=== PATIENT | male | born 1930 | race Caucasian/White ===

== ENCOUNTER 2016-12-31 16:17 | Emergency (ER) | payer MEDICARE, BC ==
[~2016-12-31] VITALS: Ht 172.7 cm; Wt 65.0 kg
[~2016-12-31 16:17] MED LIST: CHEMO MEDS; CIPR-9 PO; DORZ2SOL RIGHT EYE; LACTCHW3 CHEW; LUPR45IN IM; METR-1 PO; PRED5TAB PO; PROT40TA PO; TIMO0.5S5 RIGHT EYE
[2016-12-31 16:19] VITALS: BP 162/77; PULSE 91; RESP 15; TEMP 98.2; O2SAT 95
[2016-12-31] MEDS ORDERED: CALC1TAB87 PO (16:42)
--- NOTE | 2016-12-31 16:52 | PD ---
HPI Chief Complaint: Fall Time Seen by Provider: 16:52 Travel History International Travel<30 days: No Contact w/Intl Traveler<30days: No Traveled to known affect area: No History of Present Illness HPI 86-year-old male presents the emergency department with history of fall at his home. Patient states he was in his driveway speaking to another gentleman with a small dog in his hands when he stepped off the side of the driveway lost his balance and fell forward hitting his left anterior forehead. Patient denies any pain at this time. He denies loss of consciousness and remembers the whole incident. Denies any neck pain or other injury. Patient has an abrasion to the left lateral forehead/eyebrow small amount of capillary bleeding noted. He is unsure of his last tetanus shot. He does not take anticoagulants. He has no known drug allergies. PFSH Past Medical History Hx Anticoagulant Therapy: No Cancer: Yes (PROSTATE) Cardiovascular Problems: No Diabetes: No Diminished Hearing: No Hepatitis: No Hiatal Hernia: No Hypertension: No Medical other: Yes (PROSTATE) Psychiatric: No Respiratory: No Thyroid Disease: No Past Surgical History Abdominal Surgery: Yes (RIGHT AND LEFT INGUINAL HERNIA REPAIR) Genitourinary Surgery: Yes (RT Ureter) Oral Surgery: Yes (TONSILLECTOMY) Pacemaker: No Tonsillectomy: Yes Other Surgery: Yes (esophageal tumor) Social History Alcohol Use: Yes (OCC) Tobacco Use: No Substance Use: No Allergies-Medications (Allergen,Severity, Reaction): Coded Allergies: No Known Allergies (Unverified , 04/02/16) Reported Meds & Prescriptions Reported Meds & Active Scripts Active Reported Calcium 600 with Vitamin D (Calcium Carbonate-Cholecalciferol) 600-400 mg-Unit Tab 1 Tab PO DAILY [Chemo Meds] DIRECTED Timoptic Opth Drops (Timolol Opth Drops) 0.5 % Soln 1 Drop RIGHT EYE DAILY Dorzolamide Opth Drops (Dorzolamide HCl) 2% Soln 1 Drop RIGHT EYE TID Lupron Depot Inj Kit (Leuprolide (6 Month) Inj Kit) 45 Mg Kit Unknown Dose IM Q168D Review of Systems General / Constitutional: No: Fever Eyes: No: Visual changes HENT: No: Headaches Cardiovascular: No: Chest Pain or Discomfort Respiratory: No: Shortness of Breath Gastrointestinal: No: Abdominal Pain Genitourinary: No: Dysuria Musculoskeletal: No: Pain Skin: No Rash Neurologic: No: Weakness Psychiatric: No: Depression Endocrine: No: Polydipsia Hematologic/Lymphatic: No: Easy Bruising Physical Exam Narrative GENERAL: Patient appears in no acute distress. SKIN: Warm and dry. Normal color. Normal turgor. Superficial abrasion to the left lateral eyebrow with mild amount of capillary bleeding noted. No other signs of trauma noted. HEAD: Atraumatic. Normocephalic. Patient has some mild bruising over the left lateral forehead and eyebrow, which has mild tenderness. No bony tenderness or deformation noted. EYES: Pupils equal and round. No scleral icterus. No injection or drainage. Ocular motions are full bilaterally without tenderness. ENT: No nasal bleeding or discharge. Mucous membranes pink and moist. No dental injury. Pharynx is normal. No buccal membrane injury. NECK: Trachea midline. No bony tenderness or step-off. Supple and nontender. CARDIOVASCULAR: Regular rate and rhythm. No murmurs gallops or rubs. RESPIRATORY: No accessory muscle use. Clear to auscultation. Breath sounds equal bilaterally. MUSCULOSKELETAL: Extremities without clubbing, cyanosis, or edema. No obvious deformities. NEUROLOGICAL: Awake and alert. No obvious cranial nerve deficits. Motor grossly within normal limits. Five out of 5 muscle strength in the arms and legs. Normal speech. PSYCHIATRIC: Appropriate mood and affect; insight and judgment normal. Data Data Last Documented VS Vital Signs Date Time Temp Pulse Resp B/P Pulse Ox O2 Delivery O2 Flow Rate FiO2 12/31/16 16:35 Room Air 12/31/16 16:19 98.2 91 15 162/[address] Brain W/O Iv Contrast(Rout) (12/31/16 16:55) Tetanus/Diphtheria Tox Adult (Tetanus/Di (12/31/16 17:00) Wound Care (12/31/16 16:55) Ice/Cold Pack (12/31/16 16:55) [facility] Medical Decision Making Medical Screen Exam Complete: Yes Emergency Medical Condition: Yes Differential Diagnosis Fall. Facial abrasion. Facial contusion. Intracranial bleed. Narrative Course Patient is medically stable at time of exam. Tetanus 0.5 mg IM is given. CT of the head is ordered. Head CT is negative per radiologist. Patient is felt stable to be discharged home. Patient is to use ice to the forehead, and Tylenol as needed. Patient follow with his primary care physician as needed. Wound care instructions are given to the patient. Diagnosis Primary Impression: Fall (on)(from) sidewalk curb, initial encounter Additional Impressions: Facial contusion Qualified Code: S00.83XA - Facial contusion, initial encounter Facial abrasion Qualified Code: S00.81XA - Facial abrasion, initial encounter Referrals: Primary Care Physician Patient Instructions: Abrasion (ED), Facial Contusion (ED), General Instructions Additional Instructions: Head CT is negative per radiologist. Patient is felt stable to be discharged home. Patient is to use ice to the forehead, and Tylenol as needed. Patient follow with his primary care physician as needed. Wound care instructions are given to the patient. Med/Other Pt SpecificInfo: No Meds Exist/No RX given, Wound Care Disposition: DISCHARGE HOME Condition: Stable Edgar Polo Dec 31, 2016 16:52
[2016-12-31] MEDS ORDERED: TETANUS/DIPHTHERIA TOXOID ADULT 0.5 ML VIAL IM ONE (17:00)
--- NOTE | 2016-12-31 18:17 | RADRPT ---
EXAM DATE/TIME: 12/31/2016 18:08 [facility] COMPARISON: No previous studies available for comparison. INDICATIONS : Fall; left forehead contusion. RADIATION DOSE: 46.16 CTDIvol (mGy) MEDICAL HISTORY : Carcinoma, prostate. Esophageal tumor. SURGICAL HISTORY : None. ENCOUNTER: Initial ACUITY: 1 day PAIN SCALE: 4/10 LOCATION: Left cranial TECHNIQUE: Multiple contiguous axial images were obtained of the head. Using automated exposure control and adj ustment of the mA and/or kV according to patient size, radiation dose was kept as low as reasonably a chievable to obtain optimal diagnostic quality images. FINDINGS: CEREBRUM: The ventricles are normal for age. No evidence of midline shift, mass lesion, hemorrhage or acute in farction. No extra-axial fluid collections are seen. POSTERIOR FOSSA: The cerebellum and brainstem are intact. The 4th ventricle is midline. The cerebellopontine angle i s unremarkable. EXTRACRANIAL: The visualized portion of the orbits is intact. SKULL: The calvaria is intact. No evidence of skull fracture. There is soft tissue swelling over the left f rontal bone. CONCLUSION: Mild soft tissue swelling over left frontal bone with no evidence of hemorrhage or fr acture. Pritesh Frazier MD on December 31, 2016 at 18:14 Board Certified Radiologist. This report was verified electronically.
== END 2016-12-31 19:56 | disposition home or self-care (01) ==
LOC: NEPC 16:17
DX: S00.83XA Contusion of other part of head, initial encounter (principal); S00.81XA Abrasion of other part of head, initial encounter; Z23 Encounter for immunization; W19.XXXA Unspecified fall, initial encounter; Y92.007 Garden or yard of unspecified non-institutional (private) residence as the place of occurrence of the external cause; Y99.8 Other external cause status
CPT/HCPCS: 70450; 90471; 90714